=== PATIENT | male | born 1975 | race Caucasian/White ===

== ENCOUNTER 2021-11-02 09:46 | Emergency (ER) | payer OTHER ==
[2021-11-02] MEDS ORDERED: ACETAMINOPHEN 325 MG TABLET (FP) PO ONE (10:03)
[2021-11-02] MEDS ORDERED: DIPHTH,PERTUSS(ACELL),TET 0.5 ML DISP.SYRIN IM ONE ×2 (10:03→10:13)
[2021-11-02] MEDS ORDERED: ACETAMINOPHEN 500 MG TABLET (FP) ONE (10:13)
[2021-11-02 10:15] VITALS: BP 127/90; PULSE 70; RESP 15; TEMP 98.1; BMI 24.4
[2021-11-02] MEDS ORDERED: CIPROFLOXACIN 500 MG TABLET (RESTRICTED TO ID) PO ONE (10:22)
[2021-11-02] MEDS ORDERED: CIPROFLOXACIN 250 MG TABLET (RESTRICTED TO ID) PO ONE (10:33)
== END 2021-11-02 10:42 | disposition home or self-care (01) ==
LOC: FER 09:46
PROC: 3E0234Z Introduction of Serum, Toxoid and Vaccine into Muscle, Percutaneous Approach (ICD-10-PCS; principal; 2021-11-02)
DX: S91.331A Puncture wound without foreign body, right foot, initial encounter (principal); W45.0XXA Nail entering through skin, initial encounter
CPT/HCPCS: 73630-TC-RT-FY; 90715; 99284-25

== ENCOUNTER 2021-11-30 11:35 | Emergency (ER) | payer OTHER ==
[2021-11-30 11:49] VITALS: PULSE 64; RESP 18; TEMP 98.8; BMI 24.4
[2021-11-30 12:38] VITALS: BP 140/91
== END 2021-11-30 12:42 | disposition home or self-care (01) ==
LOC: SUPCPDRO 11:35 → FER 11:35
PROC: 0HQGXZZ Repair Left Hand Skin, External Approach (ICD-10-PCS; principal; 2021-11-30)
DX: S61.215A Laceration without foreign body of left ring finger without damage to nail, initial encounter (principal); W26.8XXA Contact with other sharp object(s), not elsewhere classified, initial encounter
CPT/HCPCS: 99282-25

== ENCOUNTER 2021-12-14 10:55 | Emergency (ER) | payer OTHER ==
[2021-12-14 11:03] VITALS: BP 133/86; PULSE 66; RESP 18; TEMP 98; BMI 23.7
== END 2021-12-14 11:22 | disposition home or self-care (01) ==
LOC: FER 10:55
DX: Z48.02 Encounter for removal of sutures (principal)
CPT/HCPCS: 99281-25